=== PATIENT | male | born 1985 | race Caucasian/White ===

== ENCOUNTER 2018-11-13 19:19 | Emergency (ER) | payer OTHER, MEDICAID ==
[~2018-11-13] VITALS: Ht 167.6 cm; Wt 86.3 kg
[2018-11-13] MEDS ORDERED: NS 1,000 ML IV ONE (20:00)
[2018-11-13 20:29] LABS: BASO # 0.1 10^3/uL (0.0-0.2); BASO % 0.4 % (0.0-1.0); EOS # 0.1 10^3/uL (0.0-0.50); EOS % 0.8 % (0.0-3.0); HEMATOCRIT 45.2 % (42.0-52.0); LYMPH # 0.9 10^3/uL (1.5-4.5); LYMPH % 6.5 % (24.0-44.0); MEAN CORPUSCULAR HEMOGLOBIN 30.9 pg (27.0-33.0); MEAN CORPUSCULAR HGB CONC 33.2 g/dl (32.0-36.5); MEAN CORPUSCULAR VOLUME 93.2 fl (80.0-96.0); MONO # 0.9 10^3/uL (0.0-0.8); MONO % 6.4 % (0.0-5.0); NEUTROPHILS # 12.2 10^3/uL (1.8-7.7); NEUTROPHILS % 85.6 % (36.0-66.0); PLATELET COUNT, AUTOMATED 261 10^3/uL (150-450); RED BLOOD COUNT 4.85 10^6/uL (4.30-6.10); WHITE BLOOD COUNT 14.3 10^3/uL (4.0-10.0)
[2018-11-13 20:57] LABS: AMPHETAMINES LEVEL URINE NEGATIVE (NEGATIVE); BARBITURATES URINE NEGATIVE (NEGATIVE); BENZODIAZEPINES URINE NEGATIVE (NEGATIVE); CANNABINOIDS URINE NEGATIVE (NEGATIVE); COCAINE METABOLITE URINE NEGATIVE (NEGATIVE); METHADONE URINE NEGATIVE (NEGATIVE); OPIATES URINE POSITIVE (NEGATIVE); PHENCYCLIDINE URINE NEGATIVE (NEGATIVE)
[2018-11-13 20:58] LABS: ACETAMINOPHEN LEVEL < 2.0 UG/ML (10.0-30.0); ALBUMIN 3.9 GM/DL (3.2-5.2); ALT/SGPT 49 U/L (12-78); BILIRUBIN,DIRECT 0.2 MG/DL (0.0-0.2); BILIRUBIN,TOTAL 0.4 MG/DL (0.2-1.0); BLOOD UREA NITROGEN 16 MG/DL (7-18); CALCIUM LEVEL 8.5 MG/DL (8.5-10.1); CARBON DIOXIDE LEVEL 31 MEQ/L (21-32); CHLORIDE LEVEL 102 MEQ/L (98-107); CPK CREATINE PHOSPHOKINASE 501 U/L (39-308); CREATININE FOR GFR 1.22 MG/DL (0.70-1.30); ETHYL ALCOHOL (ETHANOL) < 0.003 % (0.000-0.010); GLOMERULAR FILTRATION RATE > 60.0 (>60); GLUCOSE, FASTING 120 MG/DL (70-100); MB/CK RELATIVE INDEX 0.82 (< OR =4); POTASSIUM SERUM 4.1 MEQ/L (3.5-5.1); SALICYLATE LEVEL < 1.7 MG/DL (5.0-30.0); SODIUM LEVEL 138 MEQ/L (136-145); TOTAL PROTEIN 6.9 GM/DL (6.4-8.2); TROPONIN I < 0.02 NG/ML (< 0.10)
[2018-11-13 22:03] VITALS: BP 136/78
--- NOTE | 2018-11-14 06:43 | ECGEPIP ---
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
== END 2018-11-13 22:08 | disposition home or self-care (01) ==
LOC: M ED 19:19
DX: R41.82 Altered mental status, unspecified (principal); R00.0 Tachycardia, unspecified; T40.2X1A Poisoning by other opioids, accidental (unintentional), initial encounter; X58.XXXA Exposure to other specified factors, initial encounter; Y92.89 Other specified places as the place of occurrence of the external cause; F19.10 Other psychoactive substance abuse, uncomplicated
CPT/HCPCS: 70450; 80048; 80076; 80307; 82550; 82553; 84484; 85025; 93005; 93041; 94760; 99285; G0480

== ENCOUNTER 2018-12-12 09:26 | Emergency (ER) | payer MEDICAID, OTHER ==
[~2018-12-12] VITALS: Ht 167.6 cm; Wt 81.8 kg
[2018-12-12] MEDS ORDERED: LIDOCAINE 1% MDV 20ML VIAL SC ONE (10:30)
[2018-12-12] MEDS ORDERED: LIDOCAINE W/EPINEPHRINE 1% 20ML VIAL SC ONE (10:45)
[2018-12-12] MEDS ORDERED: IBUP-1022 PO (11:05)
[2018-12-12 11:10] VITALS: BP 117/66
== END 2018-12-12 11:16 | disposition home or self-care (01) ==
LOC: M ED 09:26
DX: S01.511A Laceration without foreign body of lip, initial encounter (principal); Y04.8XXA Assault by other bodily force, initial encounter; Y92.148 Other place in prison as the place of occurrence of the external cause

== ENCOUNTER → 2019-07-04 | Outpatient (CLI) | payer SELFPAY ==
[~2019-07-04] MED LIST: IBUP-1022 PO
== END ==
LOC: M OUTALCOH 08:12
PROVIDERS: ATTEND Psychiatry & Neurology Psychiatry
DX: F11.20 Opioid dependence, uncomplicated (principal)

== ENCOUNTER → 2019-07-25 | Outpatient (RCR) | payer OTHER, SELFPAY | LOC: M OUTALCOH 07-18 15:51 | PROVIDERS: ATTEND Psychiatry & Neurology Psychiatry | DX: F11.10 Opioid abuse, uncomplicated (principal); F17.200 Nicotine dependence, unspecified, uncomplicated ==

== ENCOUNTER 2019-08-16 13:00 | Outpatient (RCR) | payer OTHER | END 2019-08-24 | LOC: M OUTALCOH 13:00 | PROVIDERS: ATTEND Psychiatry & Neurology Psychiatry | DX: F11.10 Opioid abuse, uncomplicated (principal); F17.200 Nicotine dependence, unspecified, uncomplicated ==

== ENCOUNTER 2019-09-12 15:45 | Outpatient (RCR) | payer OTHER, SELFPAY ==
[2019-09-15] MEDS ORDERED: BUPR8SUB PO (11:43)
[2019-09-15] MEDS ORDERED: MOBI4TAB PO (12:56)
[2019-09-15] MEDS ORDERED: PRED20TA PO (12:56)
== END 2019-09-24 ==
LOC: M OUTALCOH 15:45
PROVIDERS: ATTEND Psychiatry & Neurology Psychiatry
DX: F11.10 Opioid abuse, uncomplicated (principal); F17.200 Nicotine dependence, unspecified, uncomplicated

== ENCOUNTER 2019-09-15 11:35 | Emergency (ER) | payer OTHER ==
[~2019-09-15] VITALS: Ht 167.6 cm; Wt 89.1 kg
[2019-09-15 11:36] VITALS: BP 122/68
[2019-09-15] MEDS ORDERED: BUPR8SUB PO (11:43)
[2019-09-15] MEDS ORDERED: MOBI4TAB PO (12:56)
[2019-09-15] MEDS ORDERED: PRED20TA PO (12:56)
== END 2019-09-15 13:13 | disposition home or self-care (01) ==
LOC: M ED 11:35
DX: M54.6 Pain in thoracic spine (principal); R20.2 Paresthesia of skin; M79.602 Pain in left arm; Z79.899 Other long term (current) drug therapy

== ENCOUNTER → 2019-10-04 | Outpatient (CLI) | payer OTHER ==
[~2019-10-04] MED LIST changes: +BUPR8SUB PO; +MOBI4TAB PO; +PRED20TA PO
--- NOTE | 2019-10-04 13:28 | REP ---
Thoracic spine series: Three views. History: Neck pain. Findings: Thoracic vertebral body heights are preserved. Alignment is normal. No fracture or collapse is seen. Disc spaces are maintained. Pedicles and posterior elements are intact. No paravertebral soft-tissue mass is seen. The visualized posterior ribs and the lung ob[place] are unremarkable. Impression: Negative radiographs of the thoracic spine. Electronically Signed by Sarwat Jean-Baptiste MD 10/04/2019 01:19 P
== END ==
LOC: M RAD 12:57
PROVIDERS: ATTEND Physician Assistant
DX: M54.2 Cervicalgia (principal)

== ENCOUNTER 2019-10-24 11:00 | Outpatient (RCR) | payer OTHER | END 2019-10-25 | LOC: M OUTALCOH 11:00 | PROVIDERS: ATTEND Psychiatry & Neurology Psychiatry | DX: F11.10 Opioid abuse, uncomplicated (principal); F17.200 Nicotine dependence, unspecified, uncomplicated ==

== ENCOUNTER 2019-11-21 10:00 | Outpatient (RCR) | payer OTHER | END 2019-11-23 | LOC: M OUTALCOH 10:00 | PROVIDERS: ATTEND Psychiatry & Neurology Psychiatry | DX: F11.10 Opioid abuse, uncomplicated (principal); F17.200 Nicotine dependence, unspecified, uncomplicated ==

== ENCOUNTER 2019-12-23 13:00 | Outpatient (RCR) | payer OTHER | END 2019-12-24 | LOC: M OUTALCOH 13:00 | PROVIDERS: ATTEND Psychiatry & Neurology Psychiatry | DX: F11.10 Opioid abuse, uncomplicated (principal); F17.200 Nicotine dependence, unspecified, uncomplicated ==

== ENCOUNTER 2020-01-06 13:00 | Outpatient (RCR) | payer OTHER | END 2020-01-23 | LOC: M OUTALCOH 13:00 | PROVIDERS: ATTEND Psychiatry & Neurology Psychiatry | DX: F11.10 Opioid abuse, uncomplicated (principal); F17.200 Nicotine dependence, unspecified, uncomplicated ==

== ENCOUNTER 2020-02-10 13:00 | Outpatient (RCR) | payer OTHER | END 2020-02-23 | LOC: M OUTALCOH 13:00 | PROVIDERS: ATTEND Psychiatry & Neurology Psychiatry | DX: F11.10 Opioid abuse, uncomplicated (principal); F17.200 Nicotine dependence, unspecified, uncomplicated ==

== ENCOUNTER 2020-02-27 15:45 | Outpatient (RCR) | payer OTHER | END 2020-03-24 | LOC: M OUTALCOH 15:45 | PROVIDERS: ATTEND Psychiatry & Neurology Psychiatry | DX: F11.10 Opioid abuse, uncomplicated (principal); F17.200 Nicotine dependence, unspecified, uncomplicated ==

== ENCOUNTER 2020-04-07 14:00 | Outpatient (RCR) | payer OTHER | END 2020-04-24 | LOC: M OUTALCOH 14:00 | PROVIDERS: ATTEND Psychiatry & Neurology Psychiatry | DX: F11.10 Opioid abuse, uncomplicated (principal); F17.200 Nicotine dependence, unspecified, uncomplicated ==

== ENCOUNTER 2020-05-19 14:00 | Outpatient (RCR) | payer OTHER | END 2020-05-25 | LOC: M OUTALCOH 14:00 | PROVIDERS: ATTEND Psychiatry & Neurology Psychiatry | DX: F11.10 Opioid abuse, uncomplicated (principal); F17.200 Nicotine dependence, unspecified, uncomplicated ==

== ENCOUNTER 2020-05-29 12:11 | Outpatient (RCR) | payer OTHER | END 2020-06-24 | LOC: M OUTALCOH 12:11 | PROVIDERS: ATTEND Psychiatry & Neurology Psychiatry | DX: F11.10 Opioid abuse, uncomplicated (principal); F17.200 Nicotine dependence, unspecified, uncomplicated ==

== ENCOUNTER 2020-07-17 16:00 | Outpatient (RCR) | payer OTHER | END 2020-07-25 | LOC: M OUTALCOH 16:00 | PROVIDERS: ATTEND Psychiatry & Neurology Psychiatry | DX: F11.10 Opioid abuse, uncomplicated (principal); F17.200 Nicotine dependence, unspecified, uncomplicated ==

== ENCOUNTER 2020-07-30 15:51 | Outpatient (RCR) | payer OTHER | END 2020-08-24 | LOC: M OUTALCOH 15:51 | PROVIDERS: ATTEND Psychiatry & Neurology Psychiatry | DX: F11.10 Opioid abuse, uncomplicated (principal); F17.200 Nicotine dependence, unspecified, uncomplicated ==

== ENCOUNTER → 2020-09-24 | Outpatient (RCR) | payer OTHER | LOC: M OUTALCOH 08-27 16:01 | PROVIDERS: ATTEND Psychiatry & Neurology Psychiatry | DX: F11.10 Opioid abuse, uncomplicated (principal); F17.200 Nicotine dependence, unspecified, uncomplicated ==

== ENCOUNTER 2020-10-14 15:23 | Outpatient (RCR) | payer OTHER | END 2020-10-25 | LOC: M OUTALCOH 15:23 | PROVIDERS: ATTEND Psychiatry & Neurology Psychiatry | DX: F11.11 Opioid abuse, in remission (principal); F17.200 Nicotine dependence, unspecified, uncomplicated ==

== ENCOUNTER 2020-11-11 15:00 | Outpatient (RCR) | payer OTHER | END 2020-11-22 | LOC: M OUTALCOH 15:00 | PROVIDERS: ATTEND Counselor Addiction (Substance Use Disorder) | DX: F11.11 Opioid abuse, in remission (principal); F17.200 Nicotine dependence, unspecified, uncomplicated ==

== ENCOUNTER → 2020-11-12 | Outpatient (CLI) | payer OTHER ==
[2020-11-12 13:56] LABS: BASO # 0.1 10^3/uL (0.0-0.2); BASO % 0.9 % (0.0-1.0); EOS # 0.4 10^3/uL (0.0-0.5); EOS % 3.6 % (0.0-3.0); HEMATOCRIT 45.5 % (42.0-52.0); HEMOGLOBIN 14.7 g/dl (13.5-17.5); LYMPH # 2.3 10^3/uL (1.5-5.0); LYMPH % 23.2 % (24.0-44.0); MEAN CORPUSCULAR HEMOGLOBIN 30.4 pg (27.0-33.0); MEAN CORPUSCULAR HGB CONC 32.3 g/dl (32.0-36.5); MEAN CORPUSCULAR VOLUME 94.2 fl (80.0-96.0); MONO # 0.7 10^3/uL (0.0-0.8); MONO % 6.9 % (2.0-8.0); NEUTROPHILS # 6.4 10^3/uL (1.5-8.5); NEUTROPHILS % 65.1 % (36.0-66.0); PLATELET COUNT, AUTOMATED 328 10^3/uL (150-450); RED BLOOD COUNT 4.83 10^6/uL (4.30-6.10); WHITE BLOOD COUNT 9.9 10^3/uL (4.0-10.0)
[2020-11-12 14:26] LABS: ALBUMIN 3.9 GM/DL (3.2-5.2); ALT/SGPT 22 U/L (12-78); BILIRUBIN,DIRECT < 0.1 MG/DL (0.0-0.2); BILIRUBIN,TOTAL 0.4 MG/DL (0.2-1.0); BLOOD UREA NITROGEN 8 MG/DL (7-18); CALCIUM LEVEL 9.2 MG/DL (8.5-10.1); CARBON DIOXIDE LEVEL 31 MEQ/L (21-32); CHLORIDE LEVEL 105 MEQ/L (98-107); CREATININE FOR GFR 0.86 MG/DL (0.70-1.30); GLOMERULAR FILTRATION RATE > 60.0 (>60); GLUCOSE, FASTING 119 MG/DL (70-100); POTASSIUM SERUM 4.4 MEQ/L (3.5-5.1); SODIUM LEVEL 140 MEQ/L (136-145); TOTAL PROTEIN 6.8 GM/DL (6.4-8.2)
== END ==
LOC: M PLALAB 10:33
PROVIDERS: ATTEND Psychiatry & Neurology Psychiatry
DX: F11.11 Opioid abuse, in remission (principal); F17.200 Nicotine dependence, unspecified, uncomplicated

== ENCOUNTER 2020-12-09 13:00 | Outpatient (RCR) | payer BC, OTHER | END 2020-12-23 | LOC: M OUTALCOH 13:00 | PROVIDERS: ATTEND Psychiatry & Neurology Psychiatry | DX: F11.11 Opioid abuse, in remission (principal); F17.200 Nicotine dependence, unspecified, uncomplicated ==

== ENCOUNTER → 2021-08-24 | Outpatient (REF) | payer OTHER | LOC: M LAB REF 16:25 | PROVIDERS: ATTEND Physician Assistant Medical | DX: J02.9 Acute pharyngitis, unspecified (principal) ==

== ENCOUNTER → 2021-09-29 | Outpatient (REF) | payer OTHER | LOC: M LAB REF 11:55 | PROVIDERS: ATTEND Physician Assistant | DX: J02.9 Acute pharyngitis, unspecified (principal) ==